=== PATIENT | female | born 1975 | race Caucasian/White ===

== ENCOUNTER 2018-06-06 14:38 | Emergency (ER) | payer MEDICAID ==
[~2018-06-06] VITALS: Ht 162.6 cm; Wt 50.0 kg
[~2018-06-06 14:38] MED LIST: NO HOME MEDS
[2018-06-06 15:03] VITALS: BP 132/82
== END 2018-06-06 15:40 | disposition home or self-care (01) ==
LOC: ER 14:39
DX: J20.8 Acute bronchitis due to other specified organisms (principal); F17.200 Nicotine dependence, unspecified, uncomplicated
CPT/HCPCS: 99281